=== PATIENT | male | born 1955 | race Caucasian/White ===

== ENCOUNTER 2018-10-13 05:33 | Day surgery (SDC) ==
--- NOTE | 2018-10-06 07:58 | EKG Report ---
Test Performed on : 10/06/2018 07:37:33 AM Test Reason : PAT Blood Pressure : / mmHG Vent. Rate : 084 BPM Atrial Rate : 293 BPM P-R Int : 000 ms QRS Dur : 090 ms QT Int : 382 ms P-R-T Axes : 261 -16 209 degrees QTc Int : 451 ms Atrial flutter. with variable AV block. Septal infarct (cited on or before 16-FEB-2010) Inferior infarct (cited on or before 24-DEC-2011) ST & T wave abnormality, consider anterolateral ischemia Abnormal ECG When compared with ECG of 20-APR-2016 10:23, Significant changes have occurred Confirmed by Gonzalo NELSON, Bennett Mack ([id number]) on 10/07/2018 6:36:10 PM
[2018-10-06 08:18] LABS: BASO# 0.05 X1000 (0.0-0.2); BASO% 0.4 % (0.0-0.8); EOS# 0.47 X1000 (0.0-0.7); EOS% 4.2 % (0.0-10.0); HEMATOCRIT 47.7 % (42.0-52.0); HEMOGLOBIN 15.9 g/dL (14.0-18.0); LYMPH# 3.16 X1000 (1.2-3.4); LYMPH% 28.2 % (20.5-51.1); MCH 31.4 PG (27-31); MCHC 33.3 g/dL (33-37); MCV 94.1 FL (81-99); MONO% 7.1 % (1.7-9.3); MPV 10.2 FL (7.4-10.4); NEUT# 6.74 X1000 (1.4-6.5); NEUT% 60.1 % (42.2-75.2); PLT 275 X1000 (130-400); RBC 5.07 XMIL (4.7-6.1); RDW 14.1 % (11.5-14.5); WBC 11.22 X1000 (4.8-10.8)
[2018-10-06 08:23] LABS: INR 1.75; PROTIME 21.8 Seconds (11.0-16.0)
[2018-10-06 08:25] LABS: PTT 40.1 Seconds (22.3-41.8)
[2018-10-06 08:43] LABS: AGAP 10; BUN 10 mg/dL (8-22); CALCIUM 8.4 mg/dL (8.8-10.2); CHLORIDE 102 mmol/L (98-107); COSMO 275; CREATININE 1.2 mg/dL (0.7-1.2); ESTIMATED GFR > 60; GLUCOSE 96 mg/dL (70-104); POTASSIUM 4.2 mmol/L (3.5-5.1); SODIUM 138 mmol/L (136-145); TCO2 26 mmol/L (25-35)
[2018-10-06 15:08] LABS: URINE SOURCE CLEAN CATCH
[2018-10-06 15:17] LABS: BILIRUBIN URINE NEGATIVE (NEGATIVE); BLOOD URINE SMALL (NEGATIVE); COLOR YELLOW; GLUCOSE URINE NEGATIVE (NEGATIVE); KETONE URINE NEGATIVE (NEGATIVE); LEUKOCYTES URINE NEGATIVE (NEGATIVE); NITRITE URINE NEGATIVE (NEGATIVE); PH URINE 6.5; PROTEIN URINE 600 mg/dL (NEGATIVE); TURBIDITY URINE CLEAR (CLEAR); UROBILINOGEN URINE 3 mg/dL (NORMAL)
[2018-10-06 15:36] LABS: UR EPITHELIAL CELLS <10 /HPF (<10); URINE BACTERIA NEGATIVE /HPF; URINE RBC <10 /HPF (<10); URINE WBC <10 /HPF (<10)
[2018-10-06 15:37] LABS: URINE CASTS NONE SEEN; URINE CRYSTALS NONE SEEN; URINE SMALL ROUND CELLS NONE SEEN; URINE YEAST NONE SEEN
[2018-10-13] MEDS ORDERED: PEPCID ONE (05:58)
[2018-10-13] MEDS ORDERED: COLACE ONE (05:58)
[2018-10-13] MEDS ORDERED: REGLAN ONE (05:58)
[2018-10-13] MEDS ORDERED: LR 500 ML ONE (05:59)
[2018-10-13] MEDS ORDERED: LYRICA ONE (05:59)
[2018-10-13] MEDS: CELEBREX ONE (06:05)
[2018-10-13] MEDS ORDERED: DECADRON ONE ×2 (06:37→06:38)
[2018-10-13] MEDS ORDERED: ZOFRAN ONE (06:37)
[2018-10-13] MEDS ORDERED: ROBINUL ONE (06:37)
[2018-10-13] MEDS ORDERED: XYLOCAINE-MPF 2% ONE (06:37)
[2018-10-13] MEDS ORDERED: FENTANYL ONE (06:37)
[2018-10-13] MEDS ORDERED: DIPRIVAN 1% ONE (06:38)
[2018-10-13] MEDS ORDERED: OFIRMEV 1000 MG/ISOTONIC SOLN 1,000 MG/100 ML BOTTLE ONE (06:38)
[2018-10-13] MEDS ORDERED: MARCAINE 0.5% PF ONE (06:55)
[2018-10-13] MEDS ORDERED: VERSED ONE (06:56)
[2018-10-13] MEDS ORDERED: TORADOL ONE (07:06)
[2018-10-13] MEDS ORDERED: DURAMORPH ONE (07:06)
[2018-10-13] MEDS ORDERED: VANCOMYCIN ONE (07:07)
[2018-10-13] MEDS ORDERED: SODIUM CHLORIDE 0.9% ONE (07:07)
[2018-10-13] MEDS ORDERED: MARCAINE 0.25% PF/EPI 1:200,000 ONE (07:07)
[2018-10-13] MEDS ORDERED: NEOSPORIN G.U. IRRIGANT ONE (07:08)
[2018-10-13] MEDS ORDERED: EXPAREL 1.3% ONE (07:08)
[2018-10-13] MEDS: KEFZOL 1 GM/D5W 2 GM/100 ML IVPB ONE ×2 (07:28→09:09)
[2018-10-13] MEDS: CYKLOKAPRON 1,000 MG/NS 2,000 MG/200 ML IVPB ONE ×2 (07:50→09:30)
[2018-10-13] MEDS ORDERED: SODIUM CHLORIDE 0.9% 20 ML ONE (08:09)
[2018-10-13] MEDS ORDERED: LOPRESSOR ONE (08:09)
[2018-10-13] MEDS ORDERED: NEO-SYNEPHRINE ONE (08:09)
[2018-10-13] MEDS ORDERED: NS 1,000 ML ONE (10:17)
[2018-10-13 10:20] LABS: URINE SOURCE CATH
[2018-10-13 10:30] LABS: BILIRUBIN URINE NEGATIVE (NEGATIVE); BLOOD URINE NEGATIVE (NEGATIVE); COLOR YELLOW; GLUCOSE URINE NEGATIVE (NEGATIVE); KETONE URINE NEGATIVE (NEGATIVE); LEUKOCYTES URINE NEGATIVE (NEGATIVE); NITRITE URINE NEGATIVE (NEGATIVE); PH URINE 6.5; PROTEIN URINE 100 mg/dL (NEGATIVE); SP GRAVITY URINE 1.005; TURBIDITY URINE CLEAR (CLEAR); UROBILINOGEN URINE NORMAL (NORMAL)
[2018-10-13 10:31] LABS: UR EPITHELIAL CELLS <10 /HPF (<10); URINE BACTERIA NEGATIVE /HPF; URINE RBC <10 /HPF (<10); URINE WBC <10 /HPF (<10)
--- NOTE | 2018-10-13 11:20 | Diag Imaging Result Doc PS360 ---
EXAM: KNEE 1-2 VIEWS-RIGHT 10/13/2018 HISTORY: r tka TECHNIQUE: Two views COMMENT: There is a total knee arthroplasty. There is a healing fracture of the proximal fibula. No evidence of acute fracture is present. IMPRESSION: Postsurgical changes. Electronically signed by Diego Cesar 10/13/2018 11:18 AM
[2018-10-13] MEDS ORDERED: NS 1,000 ML IV SCH (11:45)
[2018-10-13] MEDS ORDERED: MORPHINE IV PRN ×3 (11:45)
[2018-10-13] MEDS ORDERED: ZOFRAN PO PRN (11:45)
[2018-10-13] MEDS ORDERED: OXY IR PO PRN (11:45)
[2018-10-13] MEDS: OXY IR PO PRN ×3 (14:55→22:13)
[2018-10-13] MEDS: KEFZOL 2 GM/D5W 2 GM/50 ML IVPB IV SCH ×2 (16:34→23:30)
[2018-10-13] MEDS ORDERED: MIRALAX PO PRN (18:59)
--- NOTE | 2018-10-13 19:49 | OPERATIVE NOTE ---
PROCEDURE DATE: 10/13/2018 PREOPERATIVE DIAGNOSIS: Degenerative osteoarthritis of the right knee. POSTOPERATIVE DIAGNOSIS: Degenerative osteoarthritis of the right knee. PROCEDURE: Right total knee arthroplasty with DePuy Attune size 7 posterior stabilized femur, size 8 tibial base plate, an 8 mm rotating platform tibial insert, and a 38 mm medialized anatomic patella. SURGEON: Jamel Alvarenga MD. SIEVE REPAIRER: SANDIP Harvey. SECOND HARVEST SUPERVISOR: Steve Forbes RN. ANESTHESIA: General. IV FLUIDS: 500 mL lactated Ringer's. ESTIMATED BLOOD LOSS: 25 mL. TOURNIQUET TIME: 85 minutes at 350 mmHg. COMPLICATIONS: None. INDICATION: The patient is a pleasant, 63-year-old male with chronic history of pain and discomfort of the right knee. X-rays revealed degenerative osteoarthritis, and recommendation to proceed with right total knee arthroplasty was offered. Risks and benefits of surgery were explained, including risks of anesthesia, , bleeding, infection, failure to relieve pain, postoperative stiffness, nerve injury, blood clots, and other imponderables. All questions were answered. The patient and family wished to proceed with surgery. DETAILS OF OPERATION: The patient was taken to the operating room and placed supine on the operating table. Once adequate anesthesia was obtained, patient's right lower extremity was subsequently prepped and draped in the usual sterile fashion. Esmarch was used to exsanguinate the right lower extremity. Tourniquet was inflated to 350 mmHg. A standard anterior incision was made with a skin knife. Medial and lateral skin envelopes were developed. A standard medial parapatellar arthrotomy was then performed. Patellar fat pad was excised. Approximately 1 cm anterior to the PCL insertion, a starting reamer was passed. Intramedullary guide with a distal femoral cutting block was pinned in position. Distal femoral cut was then performed in standard fashion. A size 8 femoral component appeared to be correct size and the pins were placed. A size 7 cutting block was placed in position. Anterior, posterior, and chamfer cuts were then made. Attention then turned to the proximal tibia where, using the extramedullary guide, the proximal tibia cutting block was pinned in position. It had good alignment confirmed with the alignment zaire. The proximal tibia was then resected. Medial and lateral menisci were excised. A curved osteotome was used to remove the posterior osteophytes off the distal femur. Distal femoral cut was then performed in standard fashion. A spacer block was then placed. It had good soft tissue balance in both flexion and extension. Attention was turned back to the proximal tibia where a size 8 tibial tray appeared to be correct size. The was pinned in position. This was followed by a central reamer and a fin punch. Box cutting guide was placed on the distal femur. A box cut was performed. The trial femoral component was then placed and 2 lug holes were drilled. Trial tibial insert was then placed and had good soft tissue balancing. Patella was everted and resected in standard fashion. A trial 38 appeared to be correct size. Corresponding holes were drilled. Trial patellar component was then placed. The patient did have some lateral translation and a lateral release was then performed, and had good patellofemoral tracking after this had been conducted. Trial components were then removed. Copious irrigation was then performed with antibiotic pulsatile lavage while vancomycin was mixed with cement on the back table. Sequential cementing was then performed, first with the tibial tray and excess cement was removed with a Orlando, followed by the femoral component and excess cement was removed with a Orlando, followed by trial tibial insert in full extension and axial loading was maintained while cement cured. Patellar component was cemented in standard fashion. Patellar clamp was placed. While cement was curing, Exparel was placed in deep posterior capsule as well as the subcutaneous tissue. After cement had cured, peripheral cement was removed with a small osteotome. The 8 mm rotating platform tibial insert appeared to be correct size. The trial insert was removed. Exparel was placed in deep posterior capsule. Wound was copiously irrigated once again. An 8 mm rotating platform tibial insert was then placed and the knee was then carried through a range of motion with good range of motion, good soft tissue balancing, and good patellofemoral tracking. A 1/8 Hemovac drain was placed and was not sewn in. Copious irrigation was then performed once again with antibiotic pulsatile lavage. #1 Vicryl was used to repair arthrotomy, followed by 2-0 Vicryl to repair subcutaneous tissue, and skin robles. Adaptic, sterile 4 x 4's, ABD pad, Webril, cryo unit, and Fernando wrap were applied to the right lower extremity. Patient tolerated the procedure well and was transferred to the recovery room in stable condition. cc: Jamel Alvarenga MD
[2018-10-13] MEDS: PERIDEX MT SCH (20:36)
[2018-10-13] MEDS: COLACE PO SCH (20:36)
[2018-10-13] MEDS ORDERED: COUMADIN PO ONE (21:00)
[2018-10-13] MEDS ORDERED: PRAVACHOL PO SCH (21:00)
[2018-10-14] MEDS: ENTRESTO 49 MG-51 MG TABLET PO SCH ×2 (00:01→08:33)
[2018-10-14] MEDS: COREG PO SCH ×2 (00:01→08:33)
[2018-10-14 07:06] LABS: INR 1.05; PROTIME 14.5 Seconds (11.0-16.0)
[2018-10-14 07:09] LABS: HEMOGLOBIN 14.5 g/dL (14.0-18.0)
[2018-10-14 07:11] LABS: CALCIUM 8.2 mg/dL (8.8-10.2); CREATININE 1.4 mg/dL (0.7-1.2); POTASSIUM 4.4 mmol/L (3.5-5.1)
[2018-10-14] MEDS: PERIDEX MT SCH (08:33)
[2018-10-14] MEDS: COLACE PO SCH (08:36)
[2018-10-14] MEDS ORDERED: CLARITIN PO SCH (09:00)
[2018-10-14] MEDS ORDERED: FLOMAX PO SCH (09:00)
[2018-10-14] MEDS ORDERED: CYMBALTA PO SCH (09:00)
--- NOTE | 2018-10-14 09:22 | ORTHOPAEDICS PROGRESS NOTE ---
DATE: 10/14/2018 SUBJECTIVE: The patient is a pleasant, 63-year-old male who is 1 day status post right total knee arthroplasty. Patient is currently resting comfortable. OBJECTIVE: On physical exam, the patient's dressing is intact. Calf is soft. His labs are pending. IMPRESSION: Postoperative day #1 status post right total knee arthroplasty. PLAN: At this point, we will continue with physical therapy. He was able to ambulate 35 feet yesterday. We will anticipate discharge home today. We will arrange for outpatient physical therapy beginning tomorrow. cc: Jamel Alvarenga MD
[2018-10-14] MEDS: OXY IR PO PRN (11:24)
[2018-10-14 12:54] VITALS: BP 133/87
[2018-10-14] MEDS ORDERED: COUMADIN PO SCH (21:00)
== END 2018-10-14 16:10 | disposition home or self-care (01) ==
LOC: 4N 05:33 → OR 05:33
PROVIDERS: ATTEND Orthopaedic Surgery Adult Reconstructive Orthopaedic Surgery
CPT/HCPCS: 73560; 80048; 81001; 85014; 85018; 85025; 85610; 85730; 86850; 86900; 86901; 88305; 88311; 93005; 93010; 94761; 94799; 97110; 97116; 97162; 97530; A9270; C9290; J0131; J0690; J1100; J1885; J2250; J2274; J2275; J2370; J2405; J3010; J3370; J7030; J7120; Q9974; S0020